=== PATIENT | male | born 1975 | race American Indian/Alaskan Native ===

== ENCOUNTER 2018-07-19 13:59 | Emergency (ER) | payer MEDICAID ==
--- NOTE | 2018-07-19 14:19 | ED PDOC ---
Arrival/HPI - General Chief Complaint: Male Genitourinary Time Seen by Provider: 07/19/18 14:01 Historian: Patient - History of Present Illness Time/Duration: 1 week Symptom Course: Unchanged Severity Level: Mild Associated Symptoms (Text): 07/19/18 14:17 Patient reports sex with a new partner 1 week ago today. Since that time he has had pain with urination and hematuria. He denies any discharge. No abdominal pain nausea vomiting or diarrhea. He had a similar episode 10 years ago. No fever or chills. Patient reports he does not take his medications as prescribed including his antihypertensives. Past Medical History - Provider Review Nursing Documentation Reviewed: Yes - Cardiac Hx Hypertension: Yes (no bp meds taken for 1 month) - Musculoskeletal/Rheumatological Hx Arthritis: Yes Hx Gout: Yes - Psychiatric Hx Substance Use: No - Anesthesia Hx Anesthesia: No - Suicidal Assessment Feels Threatened In Home Enviroment: No Family/Social History - Physician Review Nursing Documentation Reviewed: Yes Family/Social History: Unknown Family HX Smoking Status: Never Smoked Hx Alcohol Use: Yes Frequency of alcohol use: Socially Hx Substance Use: No Allergies/Home Meds Allergies/Adverse Reactions: Allergies No Known Allergies Allergy (Verified 07/19/18 14:09) Home Medications: Home Meds Medication Instructions Recorded Confirmed Colchicine [Colcrys] 0.6 mg PO DAILY 07/19/18 07/19/18 Lisinopril [Prinivil] 20 mg PO DAILY 07/19/18 07/19/18 Review of Systems - Physician Review All systems were reviewed & negative as marked: Yes - Review of Systems Gastrointestinal: Normal Genitourinary Male: Hematuria. absent: Urinary Output Changes Physical Exam Temperature: Afebrile Blood Pressure: Hypertensive Pulse: Regular Respiratory Rate: Normal Appearance: Positive for: Well-Appearing, Non-Toxic, Comfortable, Other (Morbidly obese) Pain Distress: None Mental Status: Positive for: Alert and Oriented X 3 - Systems Exam Respiratory/Chest: Present: Clear to Auscultation, Good Air Exchange. No: Respiratory Distress, Accessory Muscle Use Cardiovascular: Present: Regular Rate and Rhythm, Normal S1, S2. No: Murmurs Abdomen: No: Tenderness, Distention, Peritoneal Signs, Rebound, Guarding Genitourinary Male: Present: Normal External Genitalia, Penile Discharge (Bloody). No: Lesions, Testicle Tenderness, Penile Swelling, Masses, Erythema, Testicle Swelling Medical Decision Making ED Course and Treatment: 07/19/18 15:52 Patient's urine dip came back positive for glucose. A fingerstick was ordered and his blood sugar is 221. I had a conversation with the patient about diabetes and his blood pressure. He believes that his blood pressure is elevated and his blood sugar is elevated because he was out drinking last night I discussed with the patient that this is not the case and he needs a work-up for his diabetes and for his hypertension and to be started on medication and possibly admission. Patient is refusing and stating he just has not taken his medication. He only wants his urine symptoms treated. We are waiting for his urine microscopic to return. I will discuss these issues with the patient again after his microscopic returns and he has had a chance to think about it. 07/19/18 16:09 UA is positive for both red cells and white cells. A culture has been obtained. GC and Chlamydia are pending. Based upon the history he will be treated for GC and chlamydia with Rocephin and Zithromax. He also appears to have a urinary tract infection and he will be treated for that as well. Urine culture is pending. Patient is still refusing work-up for diabetes and hypertension and treatment for same. He reports that he will be following up with his own doctor next week. He was told that he can follow-up in the emergency department at any time for further work-up evaluation and treatment. He must follow-up with his PMD for the hypertension and diabetes. Follow-up in the ER as needed. Disposition/Present on Arrival - Present on Arrival Any Indicators Present on Arrival: No History of DVT/PE: No History of Uncontrolled Diabetes: No Urinary Catheter: No History of Decub. Ulcer: No History Surgical Site Infection Following: None - Disposition Have Diagnosis and Disposition been Completed?: Yes Diagnosis: Hypertension, Diabetes, Hyperglycemia, Hematuria, Urinary tract infection Disposition: AGAINST MEDICAL ADVICE Disposition Time: 16:12 Patient Plan: Discharge Condition: GOOD Discharge Instructions (ExitCare): Urinary Tract Infections in Adults, Type 2 Diabetes, High Blood Pressure in Adults Additional Instructions: Must follow-up with PMD for hypertension and diabetes. Follow-up in ER as needed. Prescriptions: Sulfamethoxazole/Trimethoprim [Bactrim DS 800 mg-160 mg] 1 tab PO BID #14 tab Phenazopyridine HCl [Pyridium] 200 mg PO Q8 #9 tablet Forms: [employer] (Portuguese)
[2018-07-19 14:33] VITALS: RESP 18; TEMP 98.2; O2SAT 97
[2018-07-19 15:06] VITALS: BP 220/121; PULSE 82
[2018-07-19 15:39] LABS: URINE BILIRUBIN NEGATIVE (NEGATIVE); URINE BLOOD LARGE (NEGATIVE); URINE GLUCOSE (UA) 250 mg/dL (NEGATIVE); URINE LEUKOCYTE ESTERASE MODERATE Leu/uL (NEGATIVE); URINE PROTEIN 30 mg/dL (<30 mg/dL)
[2018-07-19 15:40] LABS: URINE APPEARANCE SLIGHT-CLOUDY (CLEAR); URINE COLOR DARK YELLOW (YELLOW)
[2018-07-19 16:05] LABS: URINE RBC 25 - 30 /hpf (0-2)
[2018-07-19 16:06] LABS: URINE BACTERIA MOD /hpf; URINE WBC 20 - 25 /hpf (0-6)
[2018-07-19] MEDS ORDERED: cefTRIAXone (Rocephin) 250 mg Inj IM STA (16:07)
== END 2018-07-19 17:00 | disposition left against medical advice (07) ==
LOC: ED 13:59
DX: I10 Essential (primary) hypertension (principal); E11.65 Type 2 diabetes mellitus with hyperglycemia; N39.0 Urinary tract infection, site not specified; R31.9 Hematuria, unspecified
CPT/HCPCS: 81001; 82948; 87086; 87491; 87591; 96372; 99284; J0696